=== PATIENT | female | born 1985 | race Hispanic/Latino ===

== ENCOUNTER 2017-01-11 17:33 | Emergency (ER) | payer OTHER ==
[~2017-01-11] VITALS: Ht 142.2 cm; Wt 45.5 kg
[2017-01-11 18:03] LABS: HEMATOCRIT 34.6 % (36.0-46.0); MCH 31.5 PG (29.0-34.0); MCHC 35.5 G/DL (30.0-36.0); MCV 88.7 FL (83-99); MEAN PLAT.VOLUME 11.3 uM^3 (9.5-12.4); PLATELET COUNT 139 K/uL (156-360); RBC DIS.WIDTH-CV 11.5 % (11.8-14.6); WHITE BLOOD COUNT 6.3 K/uL (4.1-10.2)
[2017-01-11 19:58] LABS: ADD MIUA? NO; BILIRUBIN NEGATIVE; BLOOD NEGATIVE; COLOR YELLOW ((YELLOW)); GLUCOSE (STRIP) NEGATIVE; KETONES 20; LEUKOCYTES NEGATIVE; NITRITE NEGATIVE; PROTEIN (STRIP) NEGATIVE; SPECIFIC GRAVITY 1.006 (1.000-1.030); UCUL ADDED? NO; UROBILINOGEN 0.2 MG/DL (0.2-1.0)
[2017-01-12 00:47] LABS: C DIFF TOXIN NEGATIVE (NEGATIVE)
[2017-01-12 00:49] LABS: PROBE CHECK PASS; SPECIMEN PROCESSING CONTROL PASS
[2017-01-12] MEDS ORDERED: REGLAN10 MG PO (01:02)
[2017-01-12] MEDS ORDERED: BENTYL20 MG PO (01:02)
[2017-01-12 01:40] VITALS: BP 105/69
== END 2017-01-12 01:41 | disposition home or self-care (01) ==
LOC: EME 17:33
PROVIDERS: Physician Assistant
DX: O26.891 Other specified pregnancy related conditions, first trimester (principal); T62.8X1A Toxic effect of other specified noxious substances eaten as food, accidental (unintentional), initial encounter; R10.30 Lower abdominal pain, unspecified; Z3A.13 13 weeks gestation of pregnancy
CPT/HCPCS: 81003; 84702; 85027; 87077; 87493; 87506; 99281; 99284; J0500; J1200; J2765; J7030